=== PATIENT | female | born 2000 | race Caucasian/White ===

== ENCOUNTER 2022-08-28 12:07 | Emergency (ER) | payer BC ==
[~2022-08-28] VITALS: Ht 165.1 cm; Wt 100.0 kg
[2022-08-28 12:08] VITALS: BP 124/62
[2022-08-28] MEDS ORDERED: IBUPROFEN 600MG TABLET PO ONE (13:15)
[2022-08-28] MEDS ORDERED: IBUP-2028 PO (13:59)
== END 2022-08-28 14:28 | disposition home or self-care (01) ==
LOC: ER 12:07
DX: M25.552 Pain in left hip (principal); M25.551 Pain in right hip; V49.9XXA Car occupant (driver) (passenger) injured in unspecified traffic accident, initial encounter; Y93.89 Activity, other specified; Y92.89 Other specified places as the place of occurrence of the external cause; Y99.8 Other external cause status
CPT/HCPCS: 73521; 81025; 99283